=== PATIENT | female | born 2000 | race Hispanic/Latino ===

== ENCOUNTER 2021-08-01 07:43 | Day surgery (SDC) | payer OTHER ==
[2021-08-01] MEDS ORDERED: Ringers Lactate 1,000 ML IV ONE ×2 (08:37→08:52)
[2021-08-01] MEDS ORDERED: CEFAZOLIN/NS 1gm 1 GM/50 ML BAG ONE (08:37)
[2021-08-01] MEDS ORDERED: NS 0.9% VIAL 30 ML ONE (08:51)
[2021-08-01] MEDS ORDERED: LIDOCAINE 1% W/EPI 1:100,000 MDV 20 ML VIAL ONE (08:51)
[2021-08-01] MEDS ORDERED: CEFAZOLIN SODIUM 1 GM/VIAL ONE (08:51)
[2021-08-01] MEDS ORDERED: Mastisol Adhesive Liq ONE (08:52)
[2021-08-01] MEDS ORDERED: GENTAMICIN 100 MG/100 ML BAG 100 ML IV ONE (08:52)
[2021-08-01] MEDS ORDERED: propofoL 200 MG/20 ML VIAL IV ONE (09:04)
[2021-08-01] MEDS ORDERED: MIDAZOLAM HCL 2 MG/2 ML INJ ONE (09:04)
[2021-08-01] MEDS ORDERED: GLYCOPYRROLATE 0.2 MG/ML SYR ONE (09:04)
[2021-08-01] MEDS ORDERED: LIDOCAINE 2% MPF 5 ML VIAL ONE (09:04)
[2021-08-01] MEDS ORDERED: FENTANYL CITR 100 MCG/2 ML ONE (09:04)
[2021-08-01] MEDS ORDERED: ROCURONIUM 50 MG/5 ML VIAL IV ONE (09:07)
[2021-08-01] MEDS ORDERED: EPHEDRINE SULF 50 MG/ML VIAL IV ONE (10:21)
[2021-08-01] MEDS ORDERED: FENTANYL CITR 100 MCG/2 ML IV ONE (14:28)
[2021-08-01] MEDS ORDERED: ONDANSETRON 4 MG/2 ML VIAL ONE (15:16)
[2021-08-01] MEDS: HYDROMORPHONE HCL 1 MG/ML INJ ONE ×2 (15:18→15:28)
[2021-08-01 15:40] VITALS: O2SAT 98
[2021-08-01] MEDS ORDERED: CODEINE 30MG/APAP 300MG TAB ONE (16:10)
[2021-08-01 16:50] VITALS: TEMP 97.1
[2021-08-01] MEDS ORDERED: HYDROCODONE/APAP 7.5/325 MG TAB ONE (17:13)
[2021-08-01 18:07] VITALS: BP 100/60
--- NOTE | 2021-08-01 19:36 | OP ---
Surgeon: Jeramie Mejias MD Health Underwriter: Manny. Preoperative Diagnosis: Breast enlargement, descent. Postoperative Diagnosis: Breast enlargement, descent. Procedure Performed: Breast reduction. Anesthesia: General. Operative Note: After satisfactory induction of general anesthesia, the chest was prepped with DuraPrep and dry sterile drapes applied in the usual manner. A 45 mm template was used to outline the right and left areolas and incision was made. Then curvilinear incisions were made and transverse incision . Skin was de-epithelialized with dermabrader or tenotomy scissors and a transverse incision was made. Flaps were elevated to 1.6 cm thickness toward the sternum, clavicle, anterior axillary line. Right side was approached first. The inferior incision was made. Excess breast tissue laterally was excised and conization performed with 2-0 PDS suture. Straps were elevated at 12 o'clock, 1:30 and 3 o'clock position. Straps were then woven in and out of pectoralis muscle back to the base of the cone, tied to themselves with 2-0 PDS suture. This was done for the 12 o'clock and 1:30 straps. 3 o'clock strap was sewn over the sternum at 3 o'clock position with 2-0 Ethibond. Left side was done in mirror-image manner. Then, returned, stapled the wound, felt the patient marked out lateral dog ears . Irrigated the wound with antibiotic solution. 10 FABIÁN was brought out of the axilla, sewn in place with 2-0 silk and the wounds were closed with 3-0 Vicryl subcu and then 3-0 PDS running from lateral to medial and medial to lateral, tied in the vertical meridian of breast. After both sides were done, patient was sat up. Site for new nipple-areolar complex was marked out. A 45 mm template was used, tissue cored out, nipple areolar complex delivered with sewn with interrupted 4-0 PDS followed by 4-0 PDS running subcuticular. Dressings consisted of tincture of benzoin, Steri-Strips, 5-0 Ethilon, fluffs, and David wrap. The amount removed was 450 from right breast and 674 from the left. GH/MODL Voice ID: [id number] Report ID: [id number]
== END 2021-08-01 18:00 | disposition home or self-care (01) ==
LOC: OR 07:43 → EDBD 09:00 → OR 18:00
PROVIDERS: ATTEND Specialist
PROC: 0HSV0ZZ Reposition Bilateral Breast, Open Approach (ICD-10-PCS; principal; 2021-08-01 09:00)
DX: N64.81 Ptosis of breast (principal)
CPT/HCPCS: 81025; 88305; 19316; J2704; J2250; J3010 ×2; J1170; J0690 ×2; J1580; J7120 ×2; J2405